=== PATIENT | male | born 1975 | race Caucasian/White ===

== ENCOUNTER 2017-09-02 03:12 | Emergency (ER) | payer SELFPAY ==
[~2017-09-02] VITALS: Ht 160 cm; Wt 63.0 kg
[2017-09-02 03:18] VITALS: BP 147/98
[2017-09-02] MEDS ORDERED: IBUPROFEN 600MG TABLET PO ONE (03:30)
== END 2017-09-02 04:10 | disposition left against medical advice (07) ==
LOC: ER 03:12
DX: S00.511A Abrasion of lip, initial encounter (principal); R22.0 Localized swelling, mass and lump, head; V49.88XA Car occupant (driver) (passenger) injured in other specified transport accidents, initial encounter; Y93.89 Activity, other specified; Y92.89 Other specified places as the place of occurrence of the external cause; Y99.8 Other external cause status
CPT/HCPCS: 99283